=== PATIENT | female | born 1985 | race Caucasian/White ===

== ENCOUNTER 2020-06-29 12:31 | Emergency (ER) | payer OTHER, SELFPAY ==
[2020-06-29] VITALS (10 sets, daily range): BP systolic 131–156; BP diastolic 68–95; PULSE 80–98; RESP 16–18; TEMP 36.6–36.7; O2SAT 95–100
--- NOTE | 2020-06-29 13:03 | ED_ITS ---
HPI - Female Genitourinary General Chief complaint: Urogenital-Female Stated complaint: Left Flank/Back Pain Time Seen by Provider: 06/29/20 12:35 Source: patient Mode of arrival: Ambulatory Limitations: no limitations History of Present Illness HPI Narrative: 35-year-old female nonsmoker with known history of kidney stones, previously requiring intervention presents with increasing left flank pain. It is worse with motion and improves with rest but never goes away. She is most concerned that she has a mother stone causing her trouble. She denies any fever chills. She denies any dysuria, frequency or urgency. She denies any specific injury. She Related Data Home Medications Medication Instructions Recorded Confirmed bupropion HCl 300 mg 24 hr tablet, 300 mg PO QAM 04/23/20 04/23/20 extended release duloxetine 60 mg capsule,delayed 60 mg PO DAILY 04/23/20 04/23/20 release sprinkle gabapentin 600 mg tablet 600 mg PO TID 04/23/20 04/23/20 oxycodone-acetaminophen 5 mg-325 1 tab PO TID PRN 04/23/20 04/23/20 mg tablet rizatriptan 10 mg tablet 10 mg PO ONCE 04/23/20 04/23/20 zolpidem 10 mg tablet 10 mg PO BEDTIME PRN 04/23/20 04/23/20 Previous Rx's Medication Instructions Recorded celecoxib 200 mg capsule 200 mg PO DAILY #90 cap 04/23/20 tizanidine 4 mg tablet See Rx Instructions .ROUTE 06/18/20 .COMPLEX #60 tab hydrocodone-acetaminophen 1 tab PO Q4-6H PRN #20 tab 06/29/20 Allergies Allergy/AdvReac Type Severity Reaction Status Date / Time acetazolamide Allergy Severe Anaphylaxis Verified 06/29/20 12:41 [From Diamox Sequels] fentanyl Allergy Severe LOSS OF Verified 06/29/20 12:41 VISION penicillin G Allergy Severe sob Verified 06/29/20 12:41 adhesive tape Allergy Intermediate rash and Verified 06/29/20 12:41 blisters codeine Allergy Intermediate nausea/rash Verified 06/29/20 12:41 morphine Allergy Intermediate rash nausea Verified 06/29/20 12:41 Patient History Medical History (Updated 06/29/20 @ 16:48 by El Salinas DO) Facet arthropathy, lumbar Herniated nucleus pulposus, L5-S1 Morbid obesity due to excess calories Surgical History (Updated 04/23/20 @ 11:28 by Carter Hopkins DO) Gastric bypass status for obesity H/O hysterectomy for benign disease H/O tubal ligation History of cholecystectomy History of gastric surgery History of tonsillectomy and adenoidectomy alcohol intake frequency: 0-2 drinks per day Substance Use Type: does not use Exam Narrative Exam Narrative: GENERAL: [35] year old patient appears stated age. Well-no urished, well-developed patient, in mild distress. HEAD: Atraumatic. Normocephalic. EYES: Pupils equal round and reactive. Extraocular motions intact. No scleral icterus. No injection or drainage. ENT: Nose without bleeding, purulent drainage. Throat without erythema, tonsillar hypertrophy or exudate. Airway patent. NECK: Trachea midline. Non tender CARDIOVASCULAR: Regular rate and rhythm without murmurs, gallops, or rubs. RESPIRATORY: Clear to auscultation. Breath sounds equal bilaterally. No wheezes, rales, or rhonchi. GASTROINTESTINAL: Abdomen soft, non-tender, nondistended. EXTREMITIES: No edema or joint tenderness. BACK: Left low cloth mercerizer back tender to palpate and with range of motion. No external manifestation of illness such as rash, swelling, erythema. No saddle anesthesia. No lower extremity weakness that is measurable. Bilateral patellar reflexes 1+ NEURO: AOx3. SKIN: No rash or erythema of visible areas Initial Vital Signs Initial Vital Signs: Vital Signs Temperature 98.1 F 06/29/20 12:37 Pulse Rate 96 H 06/29/20 12:37 Respiratory Rate 18 06/29/20 12:37 Blood Pressure 156/95 H 06/29/20 12:37 Pulse Oximetry 100 06/29/20 12:37 Course Orders Ordered: Discontinued Medications Hydrocodone Bitart/Acetaminophen (Hydrocodone/Acet 5/325 Prepack) 1 bottle MISC SEEINSTR ONE Stop: 06/29/20 16:47 Hydromorphone HCl (Hydromorphone 0.5 Mg Inj) 0.5 mg IV NOW ONE Stop: 06/29/20 14:35 Last Admin: 06/29/20 14:37 Dose: 0.5 mg Documented by: KIRSTIN Ketorolac Tromethamine (Ketorolac 60 Mg/2 Ml Vial) 15 mg IV NOW ONE Stop: 06/29/20 13:14 Last Admin: 06/29/20 13:19 Dose: 15 mg Documented by: KIRSTIN Ondansetron HCl (Ondansetron 4 Mg/2 Ml Inj) 4 mg IV NOW ONE Stop: 06/29/20 12:42 Last Admin: 06/29/20 13:19 Dose: 4 mg Documented by: KIRSTIN Vital Signs Vital signs: Vital Signs - 8 hr 06/29/20 12:37 06/29/20 14:40 06/29/20 14:41 Temperature 98.1 F Pulse Rate 96 H 93 H Respiratory Rate 18 16 Blood Pressure 156/95 H 133/74 Pulse Oximetry 100 99 06/29/20 15:00 06/29/20 15:31 Temperature Pulse Rate 87 98 H Respiratory Rate Blood Pressure 133/80 Pulse Oximetry 100 99 MDM - Female Genitourinary Lab Data Result diagrams: 06/29/20 13:15 06/29/20 13:15 Labs: Lab Results 06/29/20 06/29/20 06/29/20 Range/Units 13:15 13:15 13:15 WBC 12.1 H (4.5-11.0) X10^3/uL RBC 4.31 (4.0-5.2) X10^6/uL Hgb 12.7 (12.0-16.0) g/dL Hct 38.0 (36-46) % MCV 88.3 (80-100) fL MCH 29.5 (26-34) PG MCHC 33.4 (30-36) % RDW 14.0 (11.6-14.8) % Plt Count 358 (150-400) X10^3/uL Neut % (Auto) 64.8 (50-75) % Lymph % (Auto) 27.9 (25-40) % [place] % (Auto) 5.9 (3-14) % Eos % (Auto) 0.7 L (2-4) % Baso % (Auto) 0.7 (0-2) % Neut # (Auto) 7900 H (0730-0574) /uL Lymph # (Auto) 3400 (2942-1873) /uL [place] # (Auto) 700 (0-900) /uL Eos # (Auto) 100 (0-450) /uL Baso # (Auto) 100 (0-100) /uL PT 11.9 (10.1-12.7) SECONDS INR 1.0 (0.9-1.3) APTT 33 (26.4-36.2) SECONDS Sodium 137 (137-145) mmol/L Potassium 3.9 (3.4-5.1) mmol/L Chloride 102 (98-107) mmol/L Carbon Dioxide 30 (22-32) mmol/L BUN 15 (7-17) mg/dL Creatinine 0.60 (0.52-1.04) mg/dL Estimated GFR > 60.0 (>60) mL/min BUN/Creatinine Ratio 25.0 H (6-22) Glucose 99 (70-100) mg/dL Calcium 9.1 (8.4-10.2) mg/dL Total Bilirubin 0.3 (0.2-1.3) mg/dL AST 29 (14-36) IU/L ALT 21 (<35) IU/L Alkaline Phosphatase 136 H (38-126) U/L Total Protein 8.3 H (6.3-8.2) g/dL Albumin 4.6 (3.5-5.0) g/dL Globulin 3.7 (1.7-4.1) g/dL Albumin/Globulin Ratio 1.2 (1.0-2.8) Lipase 24 (23-300) U/L Urine Dip Bedside Urine Glucose Negative Bedside Urine Bilirubin - Negative Bedside Urine Ketone - Negative Urine Specific [place] 1.015 Bedside Urine Occult Blood - Negative Bedside Urine pH 6 Bedside Urine Protein - Negative Bedside Urine Urobilinogen - Negative Bedside Urine Nitrite - Negative Bedside Urine Leukocytes - Negative Esterase Imaging Data Renal US: Radiologist's Impression: [address] [id number] ReportSigned Patient: Paradise Graves [facility]#: [id number]: 1985Acct:[id number]/Sex: 35 / FDate of Service: 06/29/20Loc: EDAccession Number: [id number] Procedure: US renal complete Ordering Provider: El Salinas D.O. PROCEDURE: US RENAL COMPLETE INDICATIONS: RIGHT FLANK PAIN TECHNIQUE: Real-time scanning was performed of the kidneys and bladder, with image documentation. COMPARISON: [facility], CT, ABDOMEN/PELVIS WITH CONTRAST, 08/21/2016, 13:07. FINDINGS: Kidneys: Kidneys are normal in size. Right kidney measures 10.1 cm long; left kidney measures 12.3 cm long. Right renal cortical thickness is 1.4 cm; left renal cortical thickness is 2.1 cm. Renal cortical echotexture is normal. No hydronephrosis. No suspicious solid mass lesions. There is an 8 mm nonobstructing stone within mid left kidney collecting system. Bladder: Pre-void bladder volume is 332 mL. Post-void residual measurement was not obtained, the patient was unable to void. Pre-void images demonstrate no intraluminal masses or stones. On pre-void images, both ureteral jets are noted with color Doppler interrogation. (Of note, ureteral jets may not be detectable in up to 25% of cases due to insufficient differences in specific gravity between ureteral and bladder urine). Miscellaneous: No free pelvic fluid. IMPRESSION: No hydronephrosis is seen. There is an 8 mm nonobstructing left mid kidney stone seen. Urinary retention, with the patient unable to void, despite a measured bladder volume of 332 cc. Dictated by: Marc Kahn M.D. on 06/29/2020 at 15:09 Approved by: Marc Kahn M.D. on 06/29/2020 at 15:11 MDM Narrative Medical decision making narrative: Patient with left flank pain and history of both kidney stones and chronic back pain. Urine is very reassuring and there is no evidence of an obstructive uropathy. She does have a long history of back pain and is scheduled to see her back pain specialist in 2 weeks. There is no evidence of cauda equina such as saddle anesthesia, depressed reflexes, lower extremity weakness or trouble with bowel or bladder. She does mention that she has had difficulty generating a urine stream for quite some time and this is nothing new. Return precautions given and questions answered to her apparent satisfaction Discharge Plan Departure Patient Disposition: Home Clinical Impression: Acute flank pain Instructions: DI for Flank Pain Activity Restrictions/Additional Instructions: *You have been diagnosed with [acute on chronic left flank pain, no evidence of kidney stone or urine infection] *What to do: *Take medications as directed *Follow up with your primary care provider in 2-3 days, call for an appointment. Let them know you were seen in the Emergency Department and that we ask that you be seen in follow up *Return to ER if you should have any new, worsening or concerning symptoms Prescriptions: New hydrocodone-acetaminophen 5-325 mg tablet 1 tab PO Q4-6H PRN (Reason: pain) Qty: 20 RF: 0 No Action tizanidine 4 mg tablet See Rx Instructions .ROUTE .COMPLEX Qty: 60 RF: 1 zolpidem [Ambien] 10 mg tablet 10 mg PO BEDTIME PRNRF: 0 duloxetine 60 mg capsule, delayed rel sprinkle 60 mg PO DAILY RF: 0 bupropion HCl 300 mg tablet extended release 24 hr 300 mg PO QAM RF: 0 rizatriptan [Maxalt] 10 mg tablet 10 mg PO ONCE RF: 0 gabapentin 600 mg tablet 600 mg PO TID RF: 0 oxycodone-acetaminophen [Percocet] 5-325 mg tablet 1 tab PO TID PRNRF: 0 celecoxib [Celebrex] 200 mg capsule 200 mg PO DAILY Qty: 90 RF: 2 Referrals: Raymundo Ledbetter DO [Primary Care Provider] -
--- NOTE | 2020-06-29 13:13 | DI.US.S_ITS ---
PROCEDURE: US RENAL COMPLETE INDICATIONS: RIGHT FLANK PAIN TECHNIQUE: Real-time scanning was performed of the kidneys and bladder, with image documentation. COMPARISON: [facility], CT, ABDOMEN/PELVIS WITH CONTRAST, 08/21/2016, 13:07. FINDINGS: Kidneys: Kidneys are normal in size. Right kidney measures 10.1 cm long; left kidney measures 12.3 cm long. Right renal cortical thickness is 1.4 cm; left renal cortical thickness is 2.1 cm. Renal cortical echotexture is normal. No hydronephrosis. No suspicious solid mass lesions. There is an 8 mm nonobstructing stone within mid left kidney collecting system. Bladder: Pre-void bladder volume is 332 mL. Post-void residual measurement was not obtained, the patient was unable to void. Pre-void images demonstrate no intraluminal masses or stones. On pre-void images, both ureteral jets are noted with color Doppler interrogation. (Of note, ureteral jets may not be detectable in up to 25% of cases due to insufficient differences in specific gravity between ureteral and bladder urine). Miscellaneous: No free pelvic fluid. IMPRESSION: No hydronephrosis is seen. There is an 8 mm nonobstructing left mid kidney stone seen. Urinary retention, with the patient unable to void, despite a measured bladder volume of 332 cc. Dictated by: Marc Kahn M.D. on 06/29/2020 at 15:09 Approved by: Marc Kahn M.D. on 06/29/2020 at 15:11
[2020-06-29] MEDS: ONDANSETRON 4 MG/2 ML INJ IV (13:19)
[2020-06-29] MEDS: KETOROLAC 60 MG/2 ML VIAL 15 MG IV (13:19)
[2020-06-29 13:57] LABS: Prothrombin Time 11.9 SECONDS (10.1-12.7)
[2020-06-29 13:59] LABS: Add Manual Diff / Slide Review NO; Basophils Absolute Auto 100 /uL (0-100); Basophils Percent Auto 0.7 % (0-2); Eosinophils Absolute Auto 100 /uL (0-450); Eosinophils Percent Auto 0.7 % (2-4); Hemoglobin 12.7 g/dL (12.0-16.0); Lymphocytes Absolute Auto 3400 /uL (1100-4500); Lymphocytes Percent Auto 27.9 % (25-40); Mean Corpuscular HGB Conc 33.4 % (30-36); Mean Corpuscular Hemoglobin 29.5 PG (26-34); Mean Corpuscular Volume 88.3 fL (80-100); Monocytes Absolute Auto 700 /uL (0-900); Monocytes Percent Auto 5.9 % (3-14); Neutrophils Absolute Auto 7900 /uL (1500-7000); Neutrophils Percent Auto 64.8 % (50-75); Platelet Count 358 X10^3/uL (150-400); Red Blood Cell Count 4.31 X10^6/uL (4.0-5.2); White Blood Cell Count 12.1 X10^3/uL (4.5-11.0)
[2020-06-29 14:00] LABS: PTT Partial Thromboplastin Tim 33 SECONDS (26.4-36.2)
[2020-06-29 14:11] LABS: Alanine Aminotransferase 21 IU/L (<35); Albumin 4.6 g/dL (3.5-5.0); Albumin Globulin Ratio 1.2 (1.0-2.8); Alkaline Phosphatase 136 U/L (38-126); Aspartate Aminotransferase 29 IU/L (14-36); Bilirubin Total 0.3 mg/dL (0.2-1.3); Blood Urea Nitrogen 15 mg/dL (7-17); Calcium 9.1 mg/dL (8.4-10.2); Carbon Dioxide 30 mmol/L (22-32); Chloride 102 mmol/L (98-107); Estimated Glomerular Filt Rate > 60.0 mL/min (>60); Globulin 3.7 g/dL (1.7-4.1); Glucose 99 mg/dL (70-100); HEMOLYSIS < 15 (0-50); Lipase 24 U/L (23-300); Potassium 3.9 mmol/L (3.4-5.1); Sodium 137 mmol/L (137-145); Total Protein 8.3 g/dL (6.3-8.2)
[2020-06-29] MEDS: HYDROMORPHONE 0.5 MG INJ IV (14:37)
== END 2020-06-29 17:08 | disposition home or self-care (01) ==
PROVIDERS: Emergency Provider Emergency Medicine; PCP Student in an Organized Health Care Education/Training Program
DX: R10.9 Unspecified abdominal pain (principal); Z87.442 Personal history of urinary calculi; E66.01 Morbid (severe) obesity due to excess calories; M54.9 Dorsalgia, unspecified
CPT/HCPCS: 36415; 76770; 80053; 81003; 83690; 85025; 85610; 85730; 96374; 96375; 99283; 99284; J1170; J1885; J2405